=== PATIENT | female | born 1980 | race Caucasian/White ===

== ENCOUNTER → 2019-08-02 14:52 | Outpatient (CLI) | payer OTHER, SELFPAY ==
[2019-08-02 11:53] VITALS: BMI 25.3
--- NOTE | 2019-08-02 12:30 | EMB_PTH ---
PATIENT: AURORA SPRAGUE LOC: [facility] U#:[id number] AGE/SX: 44/F ROOM: RE08/02/[address]: Dr. Ceci Brown MD : 1980 BED: DIS: SPEC #: [id number] RECD: 08/02/19 14:46 STATUS: YUDITH RETeofilo #: [id number] FLACO: 08/02/19 12:[address]: Ceci Brown DEPT: SURGICAL PATHOLOGY RECD BY: Amadeo Ruiz ENTERED: 08/05/19 09:16 SP TYPE: ENDOM BX/C OT DR: No Primary Care Phys Tissues: Endometrium, NOS Procedures: Surgery Specimen Level IV HEADER OPERATION: Endometrial biopsy PRE-OP DIAGNOSIS: Abnormal uterine bleeding TISSUE SUBMITTED: Endometrial lining MICROSCOPIC DIAGNOSIS Endometrium, biopsy: Secretory endometrium. AM:shauna 08/06/19 MICROSCOPIC DESCRIPTION Slides are reviewed. GROSS DESCRIPTION Received is one container labeled with the patient's name and not further designated. The specimen consists of multiple irregular and elongated fragments of pink-kunz soft tissue that in aggregate measure 2 x 1.5 x 0.1 cm. The specimen is totally submitted in one cassette. / AM:shauna 08/05/19 TC:5 CPT: 53548
== END ==
LOC: LABSPEC 14:54
PROVIDERS: Referring Provider Obstetrics & Gynecology; Visit Provider Obstetrics & Gynecology
DX: N93.9 Abnormal uterine and vaginal bleeding, unspecified (principal)
CPT/HCPCS: 88305

== ENCOUNTER 2019-08-27 09:39 | Day surgery (SDC) | payer BC, OTHER, SELFPAY ==
[2019-08-02 11:53] VITALS: BMI 25.3
--- NOTE | 2019-08-27 08:15 | PCM.HPOB.BLA ---
- Problem List (1) Abnormal uterine bleeding Status: Acute Comment: plan d and c hysteroscopy shikha History and Physical Date of Admission: 08/27/19 Intake Vital Signs 08/02/19 Height 5 ft 1 in 08/02/19 Weight: 134 lb 4 oz 08/02/19 BMI 25.3 08/02/19 BP 180/104 H Intake Visit Reasons: CONSULT FOR ENDOMETRIAL ABLASION Director Of Field Coordination Required: No Is patient in pain?: No Allergies lisinopril Allergy (Mild, Verified 08/02/19 11:54) dry cough Medications losartan 100 mg tablet 100 mg PO DAILY 08/02/19 [History Confirmed 08/02/19] multivitamin 1 tab PO DAILY 08/02/19 [History Confirmed 08/02/19] Is last menstrual period known: Yes Last Menstral Period: 07/08/19 Post menopausal: No Patient : No : No PFSH Surgical History (Updated 08/02/19 @ 11:55 by Camille Hunter) S/P bilateral breast implants (Acute) S/P (Resolved) Family History (Updated 08/02/19 @ 11:57 by Camille Hunter) Father Hypertension Colon cancer Diabetes Bladder cancer Mother Hypertension Lung cancer Social History (Updated 08/02/19 @ 12:[address] Ceci Brown MD) Smoking Status: Current every day smoker alcohol intake: current substance use type: does not use caffeine: Yes what type of physical activity do you participate in: aerobics, weight training frequency: 5-6 times per week seatbelt use: never do you feel safe at home: Yes additional social history: - [employer] HPI CONSULT FOR ENDOMETRIAL ABLASION : Details: AURORA SPRAGUE is a 39 year old who presents for heavy menses. she has been having heavy bleeding lasting 9-14 days. she feels tired during menses. she has been dealing with this for 9 years. she is not anemic. she changes a pad eveyr 30 minutes. Female Reproductive History Last Menstral Period: 07/08/19 Cycle Length: 21-35 Bleeding Duration: 10 Questions: Metorrhagia: No, Sexually active: Yes, Dyspareunia: No, PCB: No Pregancy History 5 Elective abortions Hx Para 4 Spontaneous abortions Hx # Term Pregnancies Ectopic pregnancies 1 Hx # Pregnancies Multiple births # of living children 4 ROS Const Constitutional: Denies fatigue, fever(s), headache(s), increased appetite, poor appetite, weight gain or weight loss ENT ENT: Denies dizziness or dry mouth Cardio Card: Denies chest pain Resp Resp: Denies cough or dyspnea GI GI: Reports as per HPI; denies abdominal pain, constipation, nausea or vomiting : Reports as per HPI; denies difficulty urinating, painful urination, pelvic pain, urinary frequency, urinary incontinence, urinary hesitancy, urinary urgency, vaginal discharge, vaginal dryness, vaginal odor or vaginal itching Musc Musc: Denies joint pain, back pain or muscle weakness Skin Skin/Breast: Denies hair loss, change in hair, dry skin, breast lump, breast pain or breast skin changes Neuro Neuro: Denies dizziness Psych Psych: Denies anxiety or depression Endo Endo: Denies cold intolerance, excessive sweating, heat intolerance or increased thirst Cody/Lymph Hematologic/Lymphatic: Denies easy bleeding, Denies easy bruising, Denies enlarged lymph nodes Exam Const General: cooperative, healthy appearing, comfortable, no acute distress, well developed Nutritional Appearance: average body habitus Orientation: alert [facility] Head: normal to inspection, normocephalic Ears: hearing grossly normal bilaterally, external ears normal Nose: external nose normal, nares normal Face and sinus: normal facial exam Neck Neck: normal visual inspection, no lymphadenopathy, trachea midline Thyroid: thyroid normal Chest Chest palpation & inspection: normal inspection of the chest Resp Effort & Inspection: normal respiratory effort Auscultation: clear to auscultation bilaterally Cardio Rate: regular rate Rhythm: regular rhythm Heart Sounds: S1 normal, S2 normal GI Inspection: normal to inspection, non-distended Palpation: soft, no hepatosplenomegaly General: bladder normal to palpation External Female Exam: normal external appearance, normal appearance of the urethra Urethra: normal appearance of the urethra, normal palpation, no discharge Speculum Exam - Vagina: normal appearance of the vagina, normal vaginal discharge Speculum Exam - Cervix: normal appearance of the cervix, nontender Bimanual Exam- Vagina & Uterus: normal bimanual exam, normal vaginal palpation, uterine size normal, bladder normal to palpation, uterine shape normal, No cervical tenderness, uterine mobility normal, uterine consistency normal, normal cervical palpation, uterus non-tender Bimanual Exam- Adnexa, other: normal adnexae, adnexae mobile, no adnexal masses, pelvic support normal Pelvic Support: normal Musc Cervical Spine: other Other: gross motor intact no deficits, full bilateral strength Skin General: no rashes or lesions noted Neuro General: alert, awake, moves all extremities, no focal motor deficits Motor: muscle tone normal throughout Extrem General: normal to inspection, no pedal edema Psych Appearance: grossly normal Mental Status: mental status grossly normal Affect: normal affect Speech and Movement: speech and movement normal Office Procedures Endometrial Biopsy Endometrial Biopsy Test: Yes declined Consent Signed: Yes Time out checklist: patient, procedure, site marked/identified, positioning of patient, supplies available, allergies confirmed, team agrees on procedure Time out time: 12:22 tenaculum used: No dilator used: No Details: Cervix prepped with betadine and pipelle inserted into uterus without complication. Specimen obtained and sent to lab for analysis. All instruments removed from vagina without complications. Excellent hemostasis noted. Assessment & Plan Problems 1. Abnormal uterine bleeding N93.9 plan d and c hysteroscopy shikha Plan After discussing the patient's diagnosis and treatment plan options, patient wishes to proceed with surgical management. I have discussed with the patient the risks, benefits, and alternatives of the procedure which include but are not limited to risks of anesthesia, bleeding, infection, possible damage to bowel, bladder, or surrounding vasculature which could lead to additional surgery to evaluate any complications. Patient agrees to procedure and wishes to proceed. ACOG/uptodate references given for additional information regarding procedure. Orders Orders: Endometrial Biopsy Today N93.9 Thyroid Stim Hormone (TSH) Today N93.9 Coding Level of Care Code Off vis,new,level 4 Diagnoses Abnormal uterine bleeding N93.9 Additional Codes Endometrial Biopsy (51963) UPDATE- I have seen the patient and performed any clinically relevant updates to the history and physical exam. Ceci Brown MD
--- NOTE | 2019-08-27 08:16 | PCM.DC.D&C ---
Discharge Diet: No Restrictions Discharge Activity: Return to Normal Activity, May Shower, May Take a Tub Bath Allergies/Adverse Reactions: Allergies lisinopril Allergy (Mild, Verified 08/20/19 10:15) dry cough Medications to take at Discharge losartan 100 mg tablet 25 mg PO DAILY 08/02/19 multivitamin 1 tab PO DAILY 08/02/19 Cetirizine HCl [Zyrtec] 10 mg PO DAILY 08/20/19 Fluticasone Propionate [Flonase Allergy Relief] 9.9 ml NS DAILY 08/20/19 Naproxen [Naprosyn] 250 - 500 mg PO Q8H PRN PRN #30 tab 08/27/19 The following prescriptions were given: Naproxen [Naprosyn] 250 - 500 mg PO Q8H PRN PRN #30 tab PRN Reason: MILD PAIN Transmission Status: Pending to [facility] Orders to be completed after discharge: Type & Screen - PAT ONLY Time Frame: 08/27/19, Facility: [facility], Location: Laboratory CBC-Complete Blood Cnt No Diff Time Frame: 08/27/19, Facility: [facility], Location: Laboratory ,Urine Time Frame: 08/27/19, Facility: [facility], Location: Laboratory Primary Care Physician: Care Physician,No Primary [Primary Care Provider] - Test Results: Test results from this visit will be discussed in further detail at your follow-up appointment, if applicable. Please Follow Up With: Ceci Brown MD - [phone]
--- NOTE | 2019-08-27 09:14 | PCM.OPRPT ---
Problem List (1) Abnormal uterine bleeding Status: Acute Comment: plan d and c hysteroscopy aga Report of Operation Date of Procedure: 08/27/19 Pre-Operative Diagnosis: AUB Post-Operative Diagnosis: same Surgery/Procedure Performed:: d and c hysteroscopy ablation Type of Anesthesia:: Local MAC Special Medications: none Specimen's removed: emc Drains: none Estimated Blood Loss (mL): 25 Fluids Replaced: crystalloid Description of Procedure: Patient was prepped and draped in a normal sterile fashion under MAC anesthesia. A weighted speculum was placed in the vagina and the anterior lip of the cervix was grasped with a single-tooth tenaculum. A paracervical block was placed with 1% lidocaine. Cervix was progressively dilated to allow passage of a 5 mm hysteroscope. The lining was fully visualized and noted to have irregularly shaped cavity but no gross abnormalities. Uterine sounded to 8.5 cm. Curettage was performed and moderate amount of tissue was removed, sent to pathology. The Aga device was opened and the cavity length was found to be 5 cm. Device was inserted into the uterus and balloon inflated and device deployed. Integrity of the cavity was confirmed and 13 seconds into the treatment cycle the device defaulted due to plasma air and the device was removed a new device was opened and inserted, passed the integrity test, and a 2 minute treatment cycle was completed without complication. All instruments were removed from the vagina and excellent hemostasis was noted. Patient was awoken and taken to recovery in stable condition. Grafts/Implants Used: none - Complications none - Admit VTE Documentation VTE Present on Admission: No VTE Mechan Device Prophylaxis: SCD's Multi Select Codes - Urinary/Genital Urinary/Genital CPT Codes: 02258 Aga/Novasure
[2019-08-27 10:03] VITALS: BP 135/85; PULSE 82; RESP 16; TEMP 37.2; O2SAT 100; BMI 25.4
[2019-08-27 10:06] LABS: Internal QC Validated? YES +Cl - CLEAR BKGD; Pregnancy, Urine Negative Negative
[2019-08-27 10:17] LABS: Hematocrit 49.1 % (37-47); Hemoglobin 16.1 g/dL (12.0-15.0); Mean Corp Hgb Conc 32.8 g/dL (32-36); Mean Corpuscular Hgb 30.8 pg (27.0-32.0); Mean Corpuscular Volume 94.1 fL (81-99); Platelet Count 188 K/mm3 (150-450); RBC Distribution Width CV 12.2 % (11.6-14.6); RBC Distribution Width SD 42.5 fl (35.1-43.9); Red Blood Count 5.22 M/mm3 (4.2-5.4); White Blood Count 6.9 K/mm3 (4.4-11.0)
[2019-08-27] MEDS: Lactated Ringers 1,000 ML 100 ML IV (10:20)
[2019-08-27 10:48] LABS: Thyroid Stim Hormone (TSH) 2.29 uIU/mL (0.358-3.74)
[2019-08-27] MEDS: Lubricating Jelly 60 GM Tube 30 GM TOPICAL (11:07)
--- NOTE | 2019-08-27 11:15 | EMB_PTH ---
PATIENT: AURORA SPRAGUE [place] [facility] [place][id number] AGE/SX: 39/F ROOM: RE08/27/[address]: Dr. Ceci Brown MD : 1980 BED: DIS: 08/27/2019 SPEC #: [id number] RECD: 08/27/19 12:22 STATUS: YUDITH RUFINO #: [id number] FLACO: 08/27/19 11:[address]: Ceci Brown DEPT: SURGICAL PATHOLOGY RECD BY: Amadeo Ruiz ENTERED: 08/28/19 09:23 SP TYPE: ENDOM BX/C ERNIE DR: Bhavana Reynolds, BAR ATTENDANTTariq Tissues: Endometrium, NOS Procedures: Surgery Specimen Level IV HEADER OPERATION: Hysteroscopy, D & C Aga PRE-OP DIAGNOSIS: Abnormal uterine bleeding TISSUE SUBMITTED: Endometrial curettings MICROSCOPIC DIAGNOSIS Endometrium, curettings: Secretory endometrium. Rare strips of benign superficial endocervix. AM:shauna 08/29/19 MICROSCOPIC DESCRIPTION Slides are reviewed. GROSS DESCRIPTION Received in fixative is one container labeled with the patient's name and designated endometrial curettings. The specimen consists of multiple fragments of hemorrhagic soft tissue that in aggregate measure 3 x 2.5 x 0.3 cm. The specimen is totally submitted in one cassette. / SJ:shauna 08/28/19 TC:5 CPT: 71439
[2019-08-27 11:36] VITALS: BP 114/83; BP 135/85; PULSE 98; RESP 16; TEMP 36.8; O2SAT 99
[2019-08-27 11:40] VITALS: BP 129/81; BP 135/85; PULSE 65; RESP 16; O2SAT 100
[2019-08-27 11:45] VITALS: BP 124/80; BP 135/85; PULSE 60; RESP 16; O2SAT 100
[2019-08-27 11:54] VITALS: BP 124/74; BP 135/85; PULSE 57; RESP 16; TEMP 36.4; O2SAT 100
[2019-08-27 12:25] VITALS: BP 135/85; BP 137/75; PULSE 59; RESP 16; TEMP 36.4; O2SAT 98
== END 2019-08-27 12:40 | disposition home or self-care (01) ==
LOC: SDC 09:43 → AC 09:44
PROVIDERS: Anesthesiology; PCP Nurse Practitioner Family; Referring Provider Obstetrics & Gynecology; Visit Provider Obstetrics & Gynecology
PROC: 0U5B8ZZ Destruction of Endometrium, Via Natural or Artificial Opening Endoscopic (ICD-10-PCS; CPT 58558; principal; 2019-08-27 11:00)
DX: N85.8 Other specified noninflammatory disorders of uterus (principal); N92.0 Excessive and frequent menstruation with regular cycle; Z11.59 Encounter for screening for other viral diseases; F17.200 Nicotine dependence, unspecified, uncomplicated
CPT/HCPCS: 58563; 36415; 81025; 84443; 85027; 86850; 86900; 86901; 87635; 88305; G2023; J7120; J2405; U0003

== ENCOUNTER → 2024-10-08 | Outpatient (CLI) | payer BC, SELFPAY | END | disposition home or self-care (01) | PROVIDERS: PCP Nurse Practitioner Family | DX: T78.40XA Allergy, unspecified, initial encounter (principal) | CPT/HCPCS: 36415 ==